=== PATIENT | female | born 1960 | race Caucasian/White ===

== ENCOUNTER 2024-08-09 11:20 | Inpatient (IN) | payer MEDICARE, OTHER ==
[~2024-08-09] VITALS: Ht 182.9 cm; Wt 127.0 kg
[2024-08-09] MEDS ORDERED: FURO-152 PO (11:45)
[2024-08-09] MEDS ORDERED: PANT40TA49 PO (11:45)
[2024-08-09] MEDS ORDERED: IBUP-1953 PO (11:45)
[2024-08-09] MEDS ORDERED: ZIPR60CA2 PO (11:45)
[2024-08-09] MEDS ORDERED: LISI10TA29 PO (11:45)
[2024-08-09] MEDS ORDERED: GUAI-1189 PO (11:45)
[2024-08-09] MEDS ORDERED: ATOR10TA PO (11:45)
[2024-08-09] MEDS ORDERED: AMLO10TA4 PO (11:45)
[2024-08-09] MEDS ORDERED: OLAN15TA3 PO (11:45)
[2024-08-09 13:40] LABS: BASOPHILS # (AUTO) 0.1 K/UL (0.0-0.2); BASOPHILS % (AUTO) 0.9 % (0.0-2.0); EOSINOPHILS # (AUTO) 0.1 K/uL (0.0-0.7); HEMATOCRIT 40.4 % (31.2-41.9); HEMOGLOBIN 13.4 g/dL (10.9-14.3); LYMPHOCYTES # (AUTO) 2.7 K/uL (0.8-4.8); LYMPHOCYTES % (AUTO) 38.7 % (20.5-51.5); MEAN CORPUSCULAR HGB CONC 33 g/dL (32.3-35.6); MEAN CORPUSCULAR VOLUME 87.4 fL (75.5-95.3); MONOCYTES # (AUTO) 0.4 K/uL (0.1-1.30); MONOCYTES % (AUTO) 5.2 % (0.0-11.0); NEUTROPHILS # (AUTO) 3.8 K/uL (1.8-8.9); NEUTROPHILS % (AUTO) 53.2 % (38.5-71.5); PLATELET COUNT (AUTO) 284 K/uL (179-408); RED BLOOD CELL COUNT(AUTO) 4.62 MIL/uL (3.63-4.92); RED CELL DISTRIBUTION WIDTH 15.2 % (12.3-17.7); WHITE BLOOD COUNT (AUTO) 7.1 K/uL (3.8-11.8)
[2024-08-09 13:42] LABS: DIFFERENTIAL COMMENT 1
[2024-08-09 13:47] LABS: CALCIUM 10.5 mg/dL (8.5-10.1); CARBON DIOXIDE 30 mmol/L (21-32); CHLORIDE 106 mmol/L (98-107); CREATININE 0.7 mg/dL (0.6-1.3); GLUCOSE 133 mg/dL (74-106); SODIUM SERUM 143 mmol/L (136-145); UREA NITROGEN, BLOOD 12 mg/dL (7-18)
[2024-08-09] MEDS ORDERED: PIPERACILLIN/TAZOBACTAM/D5W 50 ML IV ONE (13:47)
[2024-08-09] MEDS ORDERED: VANCOMYCIN IV 200 ML ONE (13:47)
[2024-08-09] MEDS: PIPERACILLIN SODIUM/TAZOBACTAM 3.375 G in IV DEXTROSE 5% 50 ML IV ONE (13:57)
[2024-08-09 14:00] LABS: ALANINE AMINOTRANSFERASE 20 U/L (14-59); ALBUMIN 3.6 g/dL (3.4-5.0); ALKALINE PHOSPHATASE 134 U/L (50-136); ASPARTATE AMINOTRANSFERASE 11 U/L (15-37); BILIRUBIN,DIRECT 0.2 mg/dL (0.0-0.2); BILIRUBIN,TOTAL 0.5 mg/dL (0.2-1.0); NT-PRO BNP 249 pg/mL (0-125); TOTAL PROTEIN, SERUM 7.1 g/dL (6.4-8.2)
[2024-08-09] MEDS: VANCOMYCIN IV 1,000 MG in IV DEXTROSE 5% 250 ML IV ONE ×2 (14:30→21:15)
[2024-08-09 14:44] LABS: *BILIRUBIN,URIN NEGATIVE (NEGATIVE); *CLARITY,URINE CLEAR (CLEAR); *KETONES,URINE NEGATIVE (NEGATIVE); *PROTEIN,URINE NEGATIVE (NEGATIVE); *UROBILINOGEN,URINE 0.2 E.U./dl (NORMAL); LEUKOCYTE ESTERASE ,URINE 3+ (NEGATIVE); NITRITE, URINE NEGATIVE (NEGATIVE); UGLUCOSE NEGATIVE (NEGATIVE)
[2024-08-09 14:48] LABS: *BLOOD, URINE TRACE (NEGATIVE); *COLOR,URINE LIGHT YELLOW (YELLOW)
[2024-08-09 15:04] LABS: BACTERIA,URINE FEW /HPF (NONE SEEN); RBC,URINE 0-3 /HPF (0-3); SQUAMOUS EPITHELIAL CELL,UR FEW /HPF (NONE SEEN)
[2024-08-09 16:11] VITALS: BP 98/71; TEMP 97.7; O2SAT 97
[2024-08-09] MEDS ORDERED: MAGNESIUM HYDROXIDE 30 ML LIQUID UDC PO PRN (16:30)
[2024-08-09] MEDS ORDERED: REMEDY ESSENTIAL ZINC PASTE 113 GM TP PRN (16:30)
[2024-08-09] MEDS ORDERED: ONDANSETRON 4 MG/2 ML VIAL IV PRN (16:30)
[2024-08-09] MEDS ORDERED: ACETAMINOPHEN 325 MG TABLET PO PRN (16:30)
[2024-08-09] MEDS ORDERED: IBUPROFEN 400 MG TABLET PO PRN (16:45)
[2024-08-09] MEDS ORDERED: GUAIFENESIN/D-METHORPHAN 10 ML UDC (DIABETIC FORMULA) PO PRN ×2 (16:45→17:20)
[2024-08-09] MEDS ORDERED: ZIPRASIDONE HCL PO SCH (17:00)
[2024-08-09] MEDS ORDERED: OLANZAPINE 5 MG TABLET PO SCH (17:26)
[2024-08-09] MEDS ORDERED: IBUPROFEN 600 MG TABLET PO PRN (17:30)
[2024-08-09] MEDS ORDERED: VANCOMYCIN IV 1,000 MG in IV DEXTROSE 5% 250 ML IV ONE (18:00)
[2024-08-09] MEDS: ATORVASTATIN 10 MG TABLET PO SCH (18:31)
[2024-08-09] MEDS: PIPERACILLIN SODIUM/TAZOBACTAM 3.375 G in IV DEXTROSE 5% 50 ML IV SCH (18:31)
[2024-08-09 19:47] VITALS: BP 96/49; TEMP 97.8; O2SAT 95
[2024-08-09] MEDS: OLANZAPINE 5 MG TABLET PO ONE (21:15)
[2024-08-09] MEDS: ZIPRASIDONE 20 MG CAPSULE PO SCH (21:15)
[2024-08-09] MEDS: DOCUSATE SODIUM 100 MG CAPSULE PO SCH (21:15)
[2024-08-10 05:55] VITALS: BP 90/50; TEMP 97.3; O2SAT 95
[2024-08-10 07:23] LABS: BASOPHILS # (AUTO) 0.1 K/UL (0.0-0.2); EOSINOPHILS # (AUTO) 0.2 K/uL (0.0-0.7); EOSINOPHILS % (AUTO) 2.3 % (0.0-7.0); HEMATOCRIT 40.3 % (31.2-41.9); HEMOGLOBIN 13.5 g/dL (10.9-14.3); LYMPHOCYTES # (AUTO) 2.6 K/uL (0.8-4.8); LYMPHOCYTES % (AUTO) 30.3 % (20.5-51.5); MEAN CORPUSCULAR HEMOGLOBIN 29.4 uug (24.7-32.8); MEAN CORPUSCULAR HGB CONC 34 g/dL (32.3-35.6); MEAN CORPUSCULAR VOLUME 87.4 fL (75.5-95.3); MONOCYTES # (AUTO) 0.6 K/uL (0.1-1.30); MONOCYTES % (AUTO) 6.7 % (0.0-11.0); NEUTROPHILS # (AUTO) 5.2 K/uL (1.8-8.9); NEUTROPHILS % (AUTO) 59.7 % (38.5-71.5); PLATELET COUNT (AUTO) 290 K/uL (179-408); RED BLOOD CELL COUNT(AUTO) 4.61 MIL/uL (3.63-4.92); RED CELL DISTRIBUTION WIDTH 14.7 % (12.3-17.7); WHITE BLOOD COUNT (AUTO) 8.7 K/uL (3.8-11.8)
[2024-08-10 07:36] LABS: CALCIUM 11.3 mg/dL (8.5-10.1); CREATININE 0.6 mg/dL (0.6-1.3); DIFFERENTIAL COMMENT 1; MAGNESIUM 2.4 mg/dL (1.8-2.4); PHOSPHOROUS 3.6 mg/dL (2.5-4.9); POTASSIUM 4.6 mmol/L (3.5-5.1)
[2024-08-10 08:21] VITALS: BP 95/50; TEMP 97.6; O2SAT 95
[2024-08-10] MEDS: OLANZAPINE 5 MG TABLET PO ONE (08:23)
[2024-08-10] MEDS: PANTOPRAZOLE SODIUM 40 MG VIAL IV SCH (08:23)
[2024-08-10] MEDS: DOXYCYCLINE HYCLATE 100 MG TABLET PO SCH (08:23)
[2024-08-10] MEDS: FUROSEMIDE 20 MG TABLET PO SCH (08:33)
[2024-08-10] MEDS: LISINOPRIL 10 MG TABLET PO SCH (08:34)
[2024-08-10] MEDS: AMLODIPINE 10 MG TABLET PO SCH (08:34)
[2024-08-10] MEDS ORDERED: VANCOMYCIN HCL 1,500 MG in IV DEXTROSE 5% 500 ML IV SCH (09:00)
[2024-08-10 11:12] VITALS: BP 125/75; TEMP 97.8; O2SAT 97
[2024-08-10 15:49] VITALS: BP 137/84; TEMP 97.7; O2SAT 99
[2024-08-10] MEDS: OLANZAPINE 5 MG TABLET PO SCH (17:32)
[2024-08-10 19:20] VITALS: BP 111/51; TEMP 98; O2SAT 97
[2024-08-11 06:28] VITALS: BP 113/68; TEMP 98.7; O2SAT 99
[2024-08-11 06:56] LABS: BASOPHILS # (AUTO) 0.1 K/UL (0.0-0.2); BASOPHILS % (AUTO) 1.2 % (0.0-2.0); EOSINOPHILS # (AUTO) 0.1 K/uL (0.0-0.7); EOSINOPHILS % (AUTO) 1.8 % (0.0-7.0); HEMATOCRIT 37.1 % (31.2-41.9); HEMOGLOBIN 12.9 g/dL (10.9-14.3); LYMPHOCYTES # (AUTO) 1.8 K/uL (0.8-4.8); LYMPHOCYTES % (AUTO) 23.9 % (20.5-51.5); MEAN CORPUSCULAR HEMOGLOBIN 30.3 uug (24.7-32.8); MEAN CORPUSCULAR HGB CONC 35 g/dL (32.3-35.6); MEAN CORPUSCULAR VOLUME 87.3 fL (75.5-95.3); MONOCYTES # (AUTO) 0.8 K/uL (0.1-1.30); MONOCYTES % (AUTO) 10.3 % (0.0-11.0); NEUTROPHILS # (AUTO) 4.9 K/uL (1.8-8.9); NEUTROPHILS % (AUTO) 62.8 % (38.5-71.5); PLATELET COUNT (AUTO) 234 K/uL (179-408); RED BLOOD CELL COUNT(AUTO) 4.25 MIL/uL (3.63-4.92); RED CELL DISTRIBUTION WIDTH 14.4 % (12.3-17.7); WHITE BLOOD COUNT (AUTO) 7.7 K/uL (3.8-11.8)
[2024-08-11 07:04] LABS: DIFFERENTIAL COMMENT 1
[2024-08-11 07:13] LABS: CALCIUM 10.1 mg/dL (8.5-10.1); CREATININE 0.6 mg/dL (0.6-1.3); POTASSIUM 4.2 mmol/L (3.5-5.1)
[2024-08-11 10:56] VITALS: BP 104/69; TEMP 98.4; O2SAT 97
[2024-08-11] MEDS ORDERED: GUAIFENESIN/DEXTROMETHORPHAN 5 ML UDC PO PRN (14:45)
[2024-08-11 16:16] VITALS: BP 111/72; TEMP 98.2; O2SAT 100
[2024-08-11 19:05] VITALS: BP 104/52; TEMP 97.3; O2SAT 98
[2024-08-12 04:33] VITALS: BP 134/56; TEMP 97.7; O2SAT 98
[2024-08-12 05:41] VITALS: BP 134/56; TEMP 97.7; O2SAT 98
[2024-08-12] MEDS: PANTOPRAZOLE SODIUM 40 MG TABLET.DR PO SCH (06:09)
[2024-08-12 07:15] LABS: BASOPHILS # (AUTO) 0.1 K/UL (0.0-0.2); BASOPHILS % (AUTO) 0.9 % (0.0-2.0); EOSINOPHILS # (AUTO) 0.1 K/uL (0.0-0.7); EOSINOPHILS % (AUTO) 1.6 % (0.0-7.0); HEMATOCRIT 39.4 % (31.2-41.9); HEMOGLOBIN 13.3 g/dL (10.9-14.3); LYMPHOCYTES # (AUTO) 2.4 K/uL (0.8-4.8); LYMPHOCYTES % (AUTO) 28.5 % (20.5-51.5); MEAN CORPUSCULAR HEMOGLOBIN 29.4 uug (24.7-32.8); MEAN CORPUSCULAR HGB CONC 34 g/dL (32.3-35.6); MEAN CORPUSCULAR VOLUME 86.8 fL (75.5-95.3); MONOCYTES # (AUTO) 0.7 K/uL (0.1-1.30); MONOCYTES % (AUTO) 8.2 % (0.0-11.0); NEUTROPHILS % (AUTO) 60.8 % (38.5-71.5); PLATELET COUNT (AUTO) 267 K/uL (179-408); RED BLOOD CELL COUNT(AUTO) 4.54 MIL/uL (3.63-4.92); RED CELL DISTRIBUTION WIDTH 14.6 % (12.3-17.7); WHITE BLOOD COUNT (AUTO) 8.3 K/uL (3.8-11.8)
[2024-08-12 07:20] LABS: CALCIUM 10.8 mg/dL (8.5-10.1); CREATININE 0.7 mg/dL (0.6-1.3); POTASSIUM 4.2 mmol/L (3.5-5.1)
[2024-08-12 07:37] LABS: DIFFERENTIAL COMMENT 1
[2024-08-12 10:45] VITALS: BP 158/104; TEMP 98.2; O2SAT 99
[2024-08-12 15:15] VITALS: BP 95/67; TEMP 98.2; O2SAT 96
[2024-08-12 19:10] VITALS: BP 135/53; TEMP 97.4; O2SAT 97
[2024-08-13 05:11] VITALS: BP 111/63; TEMP 97.7; O2SAT 97
[2024-08-13 12:00] VITALS: BP 126/64; TEMP 97.8; O2SAT 97
[2024-08-13 16:00] VITALS: BP 126/80; TEMP 97.6; O2SAT 96
[2024-08-13 16:06] VITALS: BP_SYST 126; BP_SYST 90; BP_DIAS 42; BP_DIAS 80; TEMP 97.3; O2SAT 99
[2024-08-13 16:25] VITALS: BP 126/78; O2SAT 99
[2024-08-13 19:46] VITALS: BP 123/88; TEMP 97.2; O2SAT 98
[2024-08-14 04:26] VITALS: BP 116/65; TEMP 97.5; O2SAT 97
[2024-08-14] MEDS ORDERED: DOXY100T2 PO (10:14)
[2024-08-14 12:00] VITALS: BP 122/78; TEMP 97.6; O2SAT 99
[2024-08-14 16:00] VITALS: BP 129/63; TEMP 97.8; O2SAT 97
== END 2024-08-14 16:50 | DRG 603 ==
LOC: ER 11:20 → MEDSURG3 15:17
PROVIDERS: ADMIT Nurse Practitioner Family; ATTEND Nurse Practitioner Family
DX: L03.116 Cellulitis of left lower limb (principal); N39.0 Urinary tract infection, site not specified; F20.0 Paranoid schizophrenia; L97.821 Non-pressure chronic ulcer of other part of left lower leg limited to breakdown of skin; I87.312 Chronic venous hypertension (idiopathic) with ulcer of left lower extremity; L03.115 Cellulitis of right lower limb; E66.01 Morbid (severe) obesity due to excess calories; Z68.38 Body mass index [BMI] 38.0-38.9, adult; E78.5 Hyperlipidemia, unspecified; K21.9 Gastro-esophageal reflux disease without esophagitis; B96.89 Other specified bacterial agents as the cause of diseases classified elsewhere; I11.0 Hypertensive heart disease with heart failure; I50.9 Heart failure, unspecified; Z79.899 Other long term (current) drug therapy; R26.81 Unsteadiness on feet
CPT/HCPCS: 36415; 71045; 83605; 83735; 84100; 84484; 85025; 85730; 87040; 87077; 87086; A4606; A4663; A6209; G0378; J2470; J2543; J3370; J3371; J7050; J7060